=== PATIENT | female | born 1985 | race Caucasian/White ===

== ENCOUNTER 2017-06-27 18:22 | Emergency (ER) | payer MEDICAID, OTHER ==
[~2017-06-27] VITALS: Ht 172.7 cm; Wt 61.4 kg
[~2017-06-27 18:22] MED LIST: FLUO-191 PO; LAMO100 PO
[2017-06-27] MEDS ORDERED: ONDANSETRON HCL 4 MG/2 ML VIAL IM ONE (22:15)
[2017-06-27 22:23] LABS: AMPHET/METH SCREEN,URINE POSITIVE (NEGATIVE); BARBITURATE SCREEN, URINE NEGATIVE (NEGATIVE); BENZODIAZEPINES SCREEN,URINE NEGATIVE (NEGATIVE); CANNABINOID SCREEN,URINE NEGATIVE (NEGATIVE); COCAINE SCREEN,URINE NEGATIVE (NEGATIVE); METHADONE SCREEN, URINE NEGATIVE (NEGATIVE); OPIATE SCREEN,URINE NEGATIVE (NEGATIVE)
[2017-06-27 22:24] LABS: PHENCYCLIDINE SCREEN,URINE NEGATIVE (NEGATIVE)
[2017-06-27 23:34] VITALS: BP 132/85
== END 2017-06-27 23:35 | disposition home or self-care (01) ==
LOC: EMS 18:25
DX: S83.92XA Sprain of unspecified site of left knee, initial encounter (principal); F32.9 Major depressive disorder, single episode, unspecified; F41.9 Anxiety disorder, unspecified; F17.210 Nicotine dependence, cigarettes, uncomplicated; Z88.0 Allergy status to penicillin; Z88.6 Allergy status to analgesic agent; Z79.899 Other long term (current) drug therapy; X50.1XXA Overexertion from prolonged static or awkward postures, initial encounter; Y93.89 Activity, other specified; Y92.89 Other specified places as the place of occurrence of the external cause; Y99.8 Other external cause status
CPT/HCPCS: 73562; 80307; 96372; 99285; J2405

== ENCOUNTER 2017-06-29 16:24 | Emergency (ER) | payer OTHER | END 2017-06-29 17:21 | disposition left against medical advice (07) | LOC: EMS 16:28 | DX: Z53.21 Procedure and treatment not carried out due to patient leaving prior to being seen by health care provider (principal) ==

== ENCOUNTER 2019-09-25 18:53 | Inpatient (IN) | payer MEDICARE, MEDICAID ==
[~2019-09-25] VITALS: Ht 172.7 cm; Wt 77.3 kg
[2019-09-25] MEDS ORDERED: DOCU-342 PO (19:06)
[2019-09-25] MEDS ORDERED: LEVO50 PO (19:06)
[2019-09-25] MEDS ORDERED: CHOL200016 PO (19:06)
[2019-09-25] MEDS ORDERED: LITH300C3 PO (19:06)
[2019-09-25] MEDS ORDERED: OLAN10TA3 PO (19:06)
[2019-09-25] MEDS ORDERED: [UNRECOGNIZED DRUG - CODE] PO (19:06)
[2019-09-25] MEDS ORDERED: LACT30L PO (19:06)
[2019-09-25] MEDS ORDERED: HALO10 PO (19:06)
[2019-09-25 20:37] LABS: AMPHET/METH SCREEN,URINE NEGATIVE (NEGATIVE); BARBITURATE SCREEN, URINE NEGATIVE (NEGATIVE); BENZODIAZEPINES SCREEN,URINE NEGATIVE (NEGATIVE); CANNABINOID SCREEN,URINE NEGATIVE (NEGATIVE); COCAINE SCREEN,URINE NEGATIVE (NEGATIVE); METHADONE SCREEN, URINE NEGATIVE (NEGATIVE); OPIATE SCREEN,URINE NEGATIVE (NEGATIVE)
[2019-09-25 20:39] LABS: PHENCYCLIDINE SCREEN,URINE NEGATIVE (NEGATIVE)
[2019-09-25 20:41] LABS: BASOPHILS % (AUTO) 0.5 % (0.0-2.0); EOSINOPHILS % (AUTO) 1.6 % (1.0-6.0); HEMATOCRIT 39.2 % (36-46); HEMOGLOBIN 12.9 g/dL (12.0-16.0); LYMPHOCYTES # (AUTO) 3.5 K/uL (1.0-4.8); LYMPHOCYTES % (AUTO) 29.6 % (22.0-44.0); MEAN CORPUSCULAR HEMOGLOBIN 28.5 pg (26.0-34.0); MEAN CORPUSCULAR VOLUME 87 fL (80-100); MONOCYTES # (AUTO) 0.6 K/uL (0.1-1.0); MONOCYTES % (AUTO) 5.5 % (2.0-9.0); NEUTROPHILS # (AUTO) 7.4 K/uL (1.8-7.7); NEUTROPHILS % (AUTO) 62.8 % (40.0-70.0); PLATELET COUNT (AUTO) 443 K/uL (150-450); RED BLOOD CELL COUNT(AUTO) 4.53 MIL/uL (4.00-5.20)
[2019-09-25 20:52] LABS: ANION GAP 11 mmol/L (8-16); CARBON DIOXIDE 28 mmol/L (22-29); CHLORIDE 103 mmol/L (98-107); CREATININE 0.72 mg/dL (0.60-1.30); GLOMERULAR FILTR. RATE CALC > 60 mL/min (>60); GLUCOSE,RANDOM 93 mg/dL (70-110); LITHIUM 0.43 mmol/L (0.60-1.20); POTASSIUM 3.9 mmol/L (3.5-5.1); SODIUM SERUM 142 mmol/L (136-145); UREA NITROGEN, BLOOD 7 mg/dL (7-18)
[2019-09-25 21:07] LABS: ALANINE AMINOTRANSFERASE 24 U/L (12-78); ALBUMIN 3.9 g/dL (3.4-5.0); ALKALINE PHOSPHATASE 61 U/L (46-116); ASPARTATE AMINOTRANSFERASE 17 U/L (15-37); THYROID STIMULATING HORMONE 5.82 uIU/mL (0.36-3.74)
[2019-09-25] MEDS ORDERED: QUEtiapine FUMARATE 100 MG TABLET PO PRN (22:15)
[2019-09-26 00:38] VITALS: BP 122/65
[2019-09-26] MEDS: ZOLPIDEM TARTRATE 10 MG TABLET PO PRN ×2 (02:12→22:04)
[2019-09-26 08:56] VITALS: BP 122/75
[2019-09-26] MEDS ORDERED: ACETAMINOPHEN 325 MG TABLET PO PRN (09:30)
[2019-09-26] MEDS ORDERED: PETROLATUM,WHITE 28 GM JELLY TP PRN (09:30)
[2019-09-26] MEDS ORDERED: MAG HYDROX/AL HYDROX/SIMETH ES 30 ML SUSPENSION UDCUP PO PRN (09:30)
[2019-09-26] MEDS ORDERED: ONDANSETRON HCL 4 MG TABLET PO PRN (09:30)
[2019-09-26] MEDS ORDERED: GuaiFENesin/D-METHORPHAN [SUGAR-FREE] 200-20MG/10 ML SYRUP UDCUP PO PRN (09:30)
[2019-09-26] MEDS ORDERED: DOCUSATE SODIUM 100 MG CAPSULE PO PRN (09:30)
[2019-09-26] MEDS ORDERED: MAGNESIUM HYDROXIDE SUSPENSION 30 ML UDCUP PO PRN (09:30)
[2019-09-26] MEDS ORDERED: ALBUTEROL SULFATE HFA 90 MCG/PUFF 8 GM INHALER IH PRN (09:30)
[2019-09-26] MEDS ORDERED: CloNIDine HCL 0.1 MG TABLET PO PRN (09:30)
[2019-09-26] MEDS ORDERED: LACTULOSE 20 GM/30 ML SOLUTION UDCUP PO PRN (09:30)
[2019-09-26] MEDS ORDERED: LOPERAMIDE HCL 2 MG CAPSULE PO PRN (09:30)
[2019-09-26] MEDS ORDERED: NICOTINE 14 MG/24 HOUR PATCH TD PRN (09:30)
[2019-09-26] MEDS: LORazepam 2 MG TABLET PO PRN ×2 (10:39→16:46)
[2019-09-26] MEDS: FLUoxetine HCL 10 MG CAPSULE PO SCH ×2 (11:15→17:28)
[2019-09-26] MEDS: HALOPERIDOL 10 MG TABLET PO SCH ×2 (12:57→20:21)
[2019-09-26 16:06] VITALS: BP 108/61
[2019-09-26] MEDS: DOCUSATE SODIUM 250 MG CAPSULE PO SCH (16:46)
[2019-09-26] MEDS: LITHIUM CARBONATE 300 MG ER TABLET PO SCH (20:21)
[2019-09-27 01:09] VITALS: BP 108/68
[2019-09-27] MEDS: LEVOTHYROXINE SODIUM 50 MCG TABLET PO SCH (06:29)
[2019-09-27] MEDS: HALOPERIDOL 10 MG TABLET PO SCH ×2 (08:39→20:10)
[2019-09-27] MEDS: DOCUSATE SODIUM 250 MG CAPSULE PO SCH ×2 (08:40→16:33)
[2019-09-27] MEDS: LORazepam 2 MG TABLET PO PRN ×3 (09:26→20:37)
[2019-09-27 09:29] VITALS: BP 112/60
[2019-09-27] MEDS: CHOLECALCIFEROL (VIT D3) 2,000 UNITS [50 MCG] TABLET PO SCH (09:33)
[2019-09-27 16:15] VITALS: BP_SYST 105; BP_SYST 95; BP_DIAS 57; BP_DIAS 62
[2019-09-27] MEDS: LITHIUM CARBONATE 300 MG ER TABLET PO SCH (20:10)
[2019-09-27] MEDS: ZOLPIDEM TARTRATE 10 MG TABLET PO PRN (21:39)
[2019-09-28 00:05] VITALS: BP 110/70
[2019-09-28] MEDS: LORazepam 2 MG TABLET PO PRN ×3 (05:52→16:47)
[2019-09-28] MEDS: LEVOTHYROXINE SODIUM 50 MCG TABLET PO SCH (06:12)
[2019-09-28] MEDS: CHOLECALCIFEROL (VIT D3) 2,000 UNITS [50 MCG] TABLET PO SCH (08:02)
[2019-09-28] MEDS: DOCUSATE SODIUM 250 MG CAPSULE PO SCH ×2 (08:02→16:39)
[2019-09-28] MEDS: FLUoxetine HCL 10 MG CAPSULE PO SCH (08:02)
[2019-09-28] MEDS: HALOPERIDOL 10 MG TABLET PO SCH ×2 (08:03→20:30)
[2019-09-28 08:18] VITALS: BP 107/61
[2019-09-28 16:04] VITALS: BP 106/68
[2019-09-28] MEDS: LITHIUM CARBONATE 300 MG ER TABLET PO SCH (20:30)
[2019-09-29 05:00] VITALS: BP 110/68
[2019-09-29] MEDS: LEVOTHYROXINE SODIUM 50 MCG TABLET PO SCH (06:49)
[2019-09-29] MEDS: FLUoxetine HCL 10 MG CAPSULE PO SCH (08:33)
[2019-09-29] MEDS: DOCUSATE SODIUM 250 MG CAPSULE PO SCH ×2 (08:33→16:09)
[2019-09-29] MEDS: CHOLECALCIFEROL (VIT D3) 2,000 UNITS [50 MCG] TABLET PO SCH (08:33)
[2019-09-29] MEDS: HALOPERIDOL 10 MG TABLET PO SCH ×2 (08:34→20:29)
[2019-09-29 08:46] VITALS: BP 117/82
[2019-09-29] MEDS: LORazepam 2 MG TABLET PO PRN ×2 (12:09→16:10)
[2019-09-29 16:15] VITALS: BP 126/76
[2019-09-29] MEDS: LITHIUM CARBONATE 300 MG ER TABLET PO SCH (20:26)
[2019-09-30 06:24] VITALS: BP 108/60
[2019-09-30] MEDS: LEVOTHYROXINE SODIUM 50 MCG TABLET PO SCH (06:58)
[2019-09-30] MEDS: FLUoxetine HCL 10 MG CAPSULE PO SCH (08:08)
[2019-09-30] MEDS: DOCUSATE SODIUM 250 MG CAPSULE PO SCH ×2 (08:09→16:33)
[2019-09-30] MEDS: HALOPERIDOL 10 MG TABLET PO SCH ×2 (08:09→20:28)
[2019-09-30] MEDS: CHOLECALCIFEROL (VIT D3) 2,000 UNITS [50 MCG] TABLET PO SCH (08:09)
[2019-09-30 08:11] VITALS: BP 105/61
[2019-09-30] MEDS: LORazepam 2 MG TABLET PO PRN ×2 (09:37→16:33)
[2019-09-30 16:03] VITALS: BP 108/67
[2019-10-01 00:05] VITALS: BP 102/63
[2019-10-01] MEDS: LEVOTHYROXINE SODIUM 50 MCG TABLET PO SCH (06:31)
[2019-10-01 08:09] VITALS: BP 109/71
[2019-10-01] MEDS: DOCUSATE SODIUM 250 MG CAPSULE PO SCH ×2 (08:28→16:32)
[2019-10-01] MEDS: FLUoxetine HCL 10 MG CAPSULE PO SCH (08:28)
[2019-10-01] MEDS: HALOPERIDOL 10 MG TABLET PO SCH ×2 (08:29→20:32)
[2019-10-01] MEDS: CHOLECALCIFEROL (VIT D3) 2,000 UNITS [50 MCG] TABLET PO SCH (08:30)
[2019-10-01] MEDS: LORazepam 2 MG TABLET PO PRN ×3 (08:52→21:41)
[2019-10-01 16:22] VITALS: BP 112/62
[2019-10-01] MEDS: LITHIUM CARBONATE 450 MG ER TABLET PO SCH (20:31)
[2019-10-02 01:20] VITALS: BP 121/70
[2019-10-02 06:31] VITALS: BP 111/78
[2019-10-02] MEDS: LORazepam 2 MG TABLET PO PRN ×4 (06:34→20:01)
[2019-10-02] MEDS: LEVOTHYROXINE SODIUM 50 MCG TABLET PO SCH (06:44)
[2019-10-02] MEDS: DOCUSATE SODIUM 250 MG CAPSULE PO SCH ×2 (08:03→16:23)
[2019-10-02] MEDS: FLUoxetine HCL 10 MG CAPSULE PO SCH (08:03)
[2019-10-02] MEDS: CHOLECALCIFEROL (VIT D3) 2,000 UNITS [50 MCG] TABLET PO SCH (08:03)
[2019-10-02] MEDS: HALOPERIDOL 10 MG TABLET PO SCH ×2 (08:03→21:00)
[2019-10-02 08:26] VITALS: BP 104/60
[2019-10-02 16:00] VITALS: BP 110/67
[2019-10-02] MEDS: LITHIUM CARBONATE 450 MG ER TABLET PO SCH (20:59)
[2019-10-03] VITALS: BP 90/60
[2019-10-03] MEDS: LEVOTHYROXINE SODIUM 50 MCG TABLET PO SCH (06:50)
[2019-10-03 08:41] VITALS: BP 114/63
[2019-10-03] MEDS: DOCUSATE SODIUM 250 MG CAPSULE PO SCH ×2 (09:00→16:40)
[2019-10-03] MEDS: LORazepam 2 MG TABLET PO PRN ×2 (09:16→18:33)
[2019-10-03] MEDS: FLUoxetine HCL 10 MG CAPSULE PO SCH (09:16)
[2019-10-03] MEDS: HALOPERIDOL 10 MG TABLET PO SCH ×2 (09:16→20:31)
[2019-10-03] MEDS: CHOLECALCIFEROL (VIT D3) 2,000 UNITS [50 MCG] TABLET PO SCH (09:16)
[2019-10-03 16:35] VITALS: BP 119/72
[2019-10-03] MEDS: LITHIUM CARBONATE 450 MG ER TABLET PO SCH (20:31)
[2019-10-04 01:50] VITALS: BP 102/63
[2019-10-04] MEDS: LEVOTHYROXINE SODIUM 50 MCG TABLET PO SCH (05:55)
[2019-10-04] MEDS: FLUoxetine HCL 10 MG CAPSULE PO SCH (08:39)
[2019-10-04] MEDS: CHOLECALCIFEROL (VIT D3) 2,000 UNITS [50 MCG] TABLET PO SCH (08:39)
[2019-10-04] MEDS: HALOPERIDOL 10 MG TABLET PO SCH (08:39)
[2019-10-04] MEDS: DOCUSATE SODIUM 250 MG CAPSULE PO SCH (08:39)
[2019-10-04] MEDS ORDERED: HALO10 PO (08:54)
[2019-10-04] MEDS ORDERED: LITH450CRT PO (08:54)
[2019-10-04] MEDS ORDERED: PROZ10 PO (08:54)
== END 2019-10-04 12:30 | disposition home or self-care (01) | DRG 885 ==
LOC: EMS 18:55 → B2X 22:06
DX: F25.0 Schizoaffective disorder, bipolar type (principal); R45.851 Suicidal ideations; D72.829 Elevated white blood cell count, unspecified; E03.9 Hypothyroidism, unspecified; E55.9 Vitamin D deficiency, unspecified; F17.200 Nicotine dependence, unspecified, uncomplicated; K59.09 Other constipation; Z71.6 Tobacco abuse counseling; Z91.5 Personal history of self-harm; Z79.899 Other long term (current) drug therapy
CPT/HCPCS: 84439; 84443; G0480

== ENCOUNTER 2019-11-10 15:33 | Inpatient (IN) | payer MEDICARE, MEDICAID ==
[~2019-11-10] VITALS: Ht 172.7 cm; Wt 77.8 kg
[~2019-11-10 15:33] MED LIST changes: -FLUO-191 PO; +FLUO40CA7 PO; +HALO10 PO; -LAMO100 PO; +LAMO200T PO; +LEVO50 PO; +LITH450CRT PO; +PROZ10 PO; +TNFMISC; +[UNRECOGNIZED DRUG - CODE]
[2019-11-10] MEDS ORDERED: SODIUM CHLORIDE 0.9% 1,000 ML IV ONE (15:51)
[2019-11-10] MEDS ORDERED: ONDANSETRON HCL 4 MG/2 ML VIAL IVP ONE (16:00)
[2019-11-10 16:36] LABS: BASOPHILS % (AUTO) 0.4 % (0.0-2.0); EOSINOPHILS % (AUTO) 1.4 % (1.0-6.0); HEMATOCRIT 37.8 % (36-46); HEMOGLOBIN 12.4 g/dL (12.0-16.0); LYMPHOCYTES # (AUTO) 1.8 K/uL (1.0-4.8); LYMPHOCYTES % (AUTO) 19.3 % (22.0-44.0); MEAN CORPUSCULAR HEMOGLOBIN 28.2 pg (26.0-34.0); MEAN CORPUSCULAR HGB CONC 32.8 G/dL (31.0-37.0); MEAN CORPUSCULAR VOLUME 86 fL (80-100); MONOCYTES # (AUTO) 0.4 K/uL (0.1-1.0); MONOCYTES % (AUTO) 4.3 % (2.0-9.0); NEUTROPHILS # (AUTO) 7.1 K/uL (1.8-7.7); NEUTROPHILS % (AUTO) 74.6 % (40.0-70.0); PLATELET COUNT (AUTO) 454 K/uL (150-450); RED BLOOD CELL COUNT(AUTO) 4.39 MIL/uL (4.00-5.20); RED CELL DISTRIBUTION WIDTH 14.1 % (11.5-14.5)
[2019-11-10 16:42] LABS: APPEARANCE,URINE CLEAR (CLEAR); BILIRUBIN,URINE NEGATIVE (NEGATIVE); GLUCOSE, URINE (UA) NEGATIVE (NEGATIVE); KETONES,URINE NEGATIVE (NEGATIVE); LEUKOCYTE ESTERASE ,URINE NEGATIVE (NEGATIVE); NITRATE,URINE NEGATIVE (NEGATIVE); OCCULT BLOOD,URINE NEGATIVE (NEGATIVE); PH,URINE 6.5 (5.0-8.0); PROTEIN,URINE NEGATIVE (NEGATIVE); UROBILINOGEN,URINE 0.2 mg/dL (<=1.0)
[2019-11-10 16:47] LABS: LITHIUM 0.65 mmol/L (0.60-1.20)
[2019-11-10 16:48] LABS: AMPHET/METH SCREEN,URINE NEGATIVE (NEGATIVE); BARBITURATE SCREEN, URINE NEGATIVE (NEGATIVE); BENZODIAZEPINES SCREEN,URINE NEGATIVE (NEGATIVE); CANNABINOID SCREEN,URINE NEGATIVE (NEGATIVE); COCAINE SCREEN,URINE NEGATIVE (NEGATIVE); METHADONE SCREEN, URINE NEGATIVE (NEGATIVE); OPIATE SCREEN,URINE NEGATIVE (NEGATIVE); PHENCYCLIDINE SCREEN,URINE NEGATIVE (NEGATIVE)
[2019-11-10 16:50] LABS: ANION GAP 6 mmol/L (8-16); CALCIUM, TOTAL 9.4 mg/dL (8.8-10.5); CARBON DIOXIDE 27 mmol/L (22-29); CHLORIDE 101 mmol/L (98-107); GLOMERULAR FILTR. RATE CALC > 60 mL/min (>60); GLUCOSE,RANDOM 102 mg/dL (70-110); POTASSIUM 3.4 mmol/L (3.5-5.1); SODIUM SERUM 134 mmol/L (136-145); UREA NITROGEN, BLOOD 6 mg/dL (7-18)
[2019-11-10 17:05] LABS: ALANINE AMINOTRANSFERASE 22 U/L (12-78); ALKALINE PHOSPHATASE 58 U/L (46-116); ASPARTATE AMINOTRANSFERASE 15 U/L (15-37); BILIRUBIN,TOTAL 0.6 mg/dL (0.1-1.0); HCG,QUANTITATIVE < 1 mIU/mL (0-6); LIPASE 147 U/L (73-393); THYROID STIMULATING HORMONE 2.13 uIU/mL (0.36-3.74); TOTAL PROTEIN, SERUM 7.3 g/dL (6.4-8.2)
[2019-11-10] MEDS ORDERED: ONDANSETRON HCL 4 MG TABLET PO ONE (20:30)
[2019-11-10] MEDS ORDERED: POTASSIUM CHLORIDE 20 MEQ ER TABLET PO ONE (20:30)
[2019-11-11] MEDS ORDERED: QUEtiapine FUMARATE 100 MG TABLET PO PRN (02:00)
[2019-11-11] MEDS: LORazepam 2 MG TABLET PO PRN ×4 (02:13→22:19)
[2019-11-11] MEDS: ZOLPIDEM TARTRATE 10 MG TABLET PO PRN (02:13)
[2019-11-11 02:17] VITALS: BP 129/81
[2019-11-11 03:29] VITALS: BP 129/81
[2019-11-11 07:04] LABS: CHOL/HDL RATIO 2.9 (3.9-5.7)
[2019-11-11] MEDS ORDERED: ALBUTEROL SULFATE HFA 90 MCG/PUFF 8 GM INHALER IH PRN (07:15)
[2019-11-11] MEDS ORDERED: CloNIDine HCL 0.1 MG TABLET PO PRN (07:15)
[2019-11-11] MEDS ORDERED: NICOTINE 14 MG/24 HOUR PATCH TD PRN (07:15)
[2019-11-11] MEDS ORDERED: LOPERAMIDE HCL 2 MG CAPSULE PO PRN (07:15)
[2019-11-11] MEDS ORDERED: DOCUSATE SODIUM 100 MG CAPSULE PO PRN (07:15)
[2019-11-11] MEDS ORDERED: MAGNESIUM HYDROXIDE SUSPENSION 30 ML UDCUP PO PRN (07:15)
[2019-11-11] MEDS ORDERED: PETROLATUM,WHITE 28 GM JELLY TP PRN (07:15)
[2019-11-11] MEDS ORDERED: GuaiFENesin/D-METHORPHAN [SUGAR-FREE] 200-20MG/10 ML SYRUP UDCUP PO PRN (07:15)
[2019-11-11] MEDS ORDERED: MAG HYDROX/AL HYDROX/SIMETH ES 30 ML SUSPENSION UDCUP PO PRN (07:15)
[2019-11-11] MEDS ORDERED: ONDANSETRON HCL 4 MG TABLET PO PRN (07:15)
[2019-11-11 09:11] VITALS: BP 104/57
[2019-11-11 09:21] VITALS: BP 104/57
[2019-11-11 16:00] VITALS: BP 118/71
[2019-11-11] MEDS: LITHIUM CARBONATE 300 MG ER TABLET PO SCH (20:01)
[2019-11-11] MEDS ORDERED: HALOPERIDOL 10 MG TABLET PO SCH (21:00)
[2019-11-11 21:19] VITALS: BP 116/76
[2019-11-11] MEDS: ACETAMINOPHEN 325 MG TABLET PO PRN (22:19)
[2019-11-12] MEDS: LEVOTHYROXINE SODIUM 50 MCG TABLET PO SCH (06:23)
[2019-11-12 06:55] VITALS: BP 113/71
[2019-11-12] MEDS: LORazepam 2 MG TABLET PO PRN ×3 (06:55→16:52)
[2019-11-12] MEDS: HALOPERIDOL 5 MG TABLET PO SCH ×2 (08:45→20:02)
[2019-11-12] MEDS: FLUoxetine HCL 10 MG CAPSULE PO SCH (08:45)
[2019-11-12 11:11] VITALS: BP 109/70
[2019-11-12 16:00] VITALS: BP 104/54
[2019-11-12] MEDS: LITHIUM CARBONATE 300 MG ER TABLET PO SCH (20:03)
[2019-11-12] MEDS: ZOLPIDEM TARTRATE 10 MG TABLET PO PRN (21:17)
[2019-11-13] MEDS: LEVOTHYROXINE SODIUM 50 MCG TABLET PO SCH (06:31)
[2019-11-13] MEDS: HALOPERIDOL 5 MG TABLET PO SCH ×2 (08:18→20:04)
[2019-11-13] MEDS: FLUoxetine HCL 10 MG CAPSULE PO SCH (08:19)
[2019-11-13] MEDS: ACETAMINOPHEN 325 MG TABLET PO PRN ×2 (08:20→18:44)
[2019-11-13] MEDS: LORazepam 2 MG TABLET PO PRN ×2 (08:36→16:38)
[2019-11-13 09:00] VITALS: BP 106/62
[2019-11-13 18:45] VITALS: BP 101/62
[2019-11-13] MEDS: LITHIUM CARBONATE 300 MG ER TABLET PO SCH (20:03)
[2019-11-13] MEDS: ZOLPIDEM TARTRATE 10 MG TABLET PO PRN (23:57)
[2019-11-14 00:13] VITALS: BP 102/68
[2019-11-14] MEDS: LEVOTHYROXINE SODIUM 50 MCG TABLET PO SCH (06:19)
[2019-11-14] MEDS: LORazepam 2 MG TABLET PO PRN ×2 (07:01→18:18)
[2019-11-14] MEDS: FLUoxetine HCL 10 MG CAPSULE PO SCH (08:05)
[2019-11-14] MEDS: HALOPERIDOL 5 MG TABLET PO SCH ×2 (08:05→20:28)
[2019-11-14 09:00] VITALS: BP 129/81
[2019-11-14 16:21] VITALS: BP 135/74
[2019-11-14 20:28] VITALS: BP 126/78
[2019-11-14] MEDS: LITHIUM CARBONATE 300 MG ER TABLET PO SCH (20:28)
[2019-11-14] MEDS: ACETAMINOPHEN 325 MG TABLET PO PRN (20:28)
[2019-11-15 01:55] VITALS: BP 112/73
[2019-11-15] MEDS: LEVOTHYROXINE SODIUM 50 MCG TABLET PO SCH (07:16)
[2019-11-15] MEDS: HALOPERIDOL 5 MG TABLET PO SCH ×2 (07:55→20:20)
[2019-11-15] MEDS: FLUoxetine HCL 10 MG CAPSULE PO SCH (07:55)
[2019-11-15 09:00] VITALS: BP 106/58
[2019-11-15] MEDS: LORazepam 2 MG TABLET PO PRN ×2 (09:27→18:43)
[2019-11-15] MEDS: ACETAMINOPHEN 325 MG TABLET PO PRN (14:39)
[2019-11-15 17:00] VITALS: BP 113/78
[2019-11-15] MEDS: LITHIUM CARBONATE 300 MG ER TABLET PO SCH (20:19)
[2019-11-15] MEDS: BENZOCAINE 10% 7 GM GEL TP PRN (20:20)
[2019-11-15] MEDS: ZOLPIDEM TARTRATE 10 MG TABLET PO PRN (21:06)
[2019-11-16] MEDS: LEVOTHYROXINE SODIUM 50 MCG TABLET PO SCH (06:38)
[2019-11-16] MEDS: FLUoxetine HCL 10 MG CAPSULE PO SCH (08:03)
[2019-11-16] MEDS: LORazepam 2 MG TABLET PO PRN ×2 (08:03→18:42)
[2019-11-16] MEDS: HALOPERIDOL 5 MG TABLET PO SCH ×2 (08:03→20:14)
[2019-11-16 09:45] VITALS: BP 115/64
[2019-11-16 12:44] VITALS: BP 104/68
[2019-11-16] MEDS: ACETAMINOPHEN 325 MG TABLET PO PRN ×2 (12:44→20:53)
[2019-11-16] MEDS: BENZOCAINE 10% 7 GM GEL TP PRN (15:11)
[2019-11-16 16:15] VITALS: BP 102/59
[2019-11-16] MEDS: LITHIUM CARBONATE 300 MG ER TABLET PO SCH (20:14)
[2019-11-16] MEDS: ZOLPIDEM TARTRATE 10 MG TABLET PO PRN (20:51)
[2019-11-16 20:53] VITALS: BP 109/62
[2019-11-17] MEDS: LEVOTHYROXINE SODIUM 50 MCG TABLET PO SCH (06:30)
[2019-11-17] MEDS: HALOPERIDOL 5 MG TABLET PO SCH ×2 (08:25→20:12)
[2019-11-17] MEDS: FLUoxetine HCL 10 MG CAPSULE PO SCH (08:26)
[2019-11-17 08:38] VITALS: BP 95/65
[2019-11-17 10:53] VITALS: BP 91/59
[2019-11-17 12:50] VITALS: BP 110/64
[2019-11-17] MEDS: LORazepam 2 MG TABLET PO PRN (12:50)
[2019-11-17 14:14] VITALS: BP 103/66
[2019-11-17] MEDS: ACETAMINOPHEN 325 MG TABLET PO PRN (14:14)
[2019-11-17] MEDS: BENZOCAINE 10% 7 GM GEL TP PRN (15:39)
[2019-11-17 16:40] VITALS: BP 108/66
[2019-11-17] MEDS: LITHIUM CARBONATE 300 MG ER TABLET PO SCH (20:12)
[2019-11-18] MEDS: LEVOTHYROXINE SODIUM 50 MCG TABLET PO SCH (06:35)
[2019-11-18] MEDS: HALOPERIDOL 5 MG TABLET PO SCH ×2 (08:19→20:05)
[2019-11-18] MEDS: FLUoxetine HCL 10 MG CAPSULE PO SCH (08:20)
[2019-11-18] MEDS: LORazepam 2 MG TABLET PO PRN ×2 (08:22→17:06)
[2019-11-18] MEDS: ACETAMINOPHEN 325 MG TABLET PO PRN ×2 (09:21→22:17)
[2019-11-18 09:22] VITALS: BP 101/62
[2019-11-18 10:21] VITALS: BP 143/80
[2019-11-18 16:00] VITALS: BP 90/64
[2019-11-18 16:33] VITALS: BP 90/64
[2019-11-18] MEDS: LITHIUM CARBONATE 300 MG ER TABLET PO SCH (20:05)
[2019-11-18] MEDS: ZOLPIDEM TARTRATE 10 MG TABLET PO PRN (20:51)
[2019-11-18 22:17] VITALS: BP 110/62
[2019-11-19] MEDS: LEVOTHYROXINE SODIUM 50 MCG TABLET PO SCH (06:55)
[2019-11-19] MEDS: LORazepam 2 MG TABLET PO PRN ×2 (07:04→19:42)
[2019-11-19] MEDS: FLUoxetine HCL 10 MG CAPSULE PO SCH (08:30)
[2019-11-19] MEDS: HALOPERIDOL 5 MG TABLET PO SCH ×2 (08:31→20:14)
[2019-11-19 13:00] VITALS: BP 90/62
[2019-11-19] MEDS: ACETAMINOPHEN 325 MG TABLET PO PRN (13:00)
[2019-11-19 17:19] VITALS: BP 120/80
[2019-11-19] MEDS: LITHIUM CARBONATE 300 MG ER TABLET PO SCH (20:13)
[2019-11-20] MEDS: LEVOTHYROXINE SODIUM 50 MCG TABLET PO SCH (07:08)
[2019-11-20 08:00] VITALS: BP 93/57
[2019-11-20] MEDS: FLUoxetine HCL 10 MG CAPSULE PO SCH (08:02)
[2019-11-20] MEDS: HALOPERIDOL 5 MG TABLET PO SCH ×2 (08:04→20:22)
[2019-11-20] MEDS: ACETAMINOPHEN 325 MG TABLET PO PRN (10:47)
[2019-11-20] MEDS: LORazepam 2 MG TABLET PO PRN (14:53)
[2019-11-20 16:25] VITALS: BP 96/75
[2019-11-20] MEDS: LITHIUM CARBONATE 300 MG ER TABLET PO SCH (20:22)
[2019-11-21] MEDS: LORazepam 2 MG TABLET PO PRN ×3 (00:49→18:18)
[2019-11-21] MEDS: ZOLPIDEM TARTRATE 10 MG TABLET PO PRN ×2 (00:49→22:05)
[2019-11-21 01:53] VITALS: BP 104/60
[2019-11-21] MEDS: LEVOTHYROXINE SODIUM 50 MCG TABLET PO SCH (06:41)
[2019-11-21] MEDS: HALOPERIDOL 5 MG TABLET PO SCH ×2 (08:13→20:07)
[2019-11-21] MEDS: FLUoxetine HCL 10 MG CAPSULE PO SCH (08:13)
[2019-11-21 08:47] VITALS: BP 91/46
[2019-11-21 16:26] VITALS: BP 99/53
[2019-11-21] MEDS: LITHIUM CARBONATE 300 MG ER TABLET PO SCH (20:06)
[2019-11-22] MEDS: LEVOTHYROXINE SODIUM 50 MCG TABLET PO SCH (06:47)
[2019-11-22] MEDS: HALOPERIDOL 5 MG TABLET PO SCH (08:14)
[2019-11-22] MEDS: FLUoxetine HCL 10 MG CAPSULE PO SCH (08:15)
[2019-11-22 08:47] VITALS: BP 96/68
[2019-11-22] MEDS ORDERED: LITH300CRT PO (10:32)
[2019-11-22] MEDS ORDERED: HALO5TAB2 PO (10:32)
[2019-11-22] MEDS ORDERED: PROZ10 PO (10:32)
== END 2019-11-22 14:20 | disposition home or self-care (01) | DRG 885 ==
LOC: EMS 15:33 → 3EX 22:52
DX: F25.0 Schizoaffective disorder, bipolar type (principal); R45.851 Suicidal ideations; E87.1 Hypo-osmolality and hyponatremia; K08.89 Other specified disorders of teeth and supporting structures; E55.9 Vitamin D deficiency, unspecified; F41.9 Anxiety disorder, unspecified; K59.09 Other constipation; R11.2 Nausea with vomiting, unspecified; R63.0 Anorexia; E03.9 Hypothyroidism, unspecified; E87.6 Hypokalemia; F17.210 Nicotine dependence, cigarettes, uncomplicated; Z59.0 Homelessness; Z79.899 Other long term (current) drug therapy; Z91.5 Personal history of self-harm; Z88.0 Allergy status to penicillin; Z88.6 Allergy status to analgesic agent; Z88.8 Allergy status to other drugs, medicaments and biological substances
CPT/HCPCS: 74022; 84132; 84443; G0378; G0480; Q0162

== ENCOUNTER 2019-11-24 15:27 | Emergency (ER) | payer MEDICARE, MEDICAID ==
[~2019-11-24] VITALS: Ht 172.7 cm; Wt 72.7 kg
[~2019-11-24 15:27] MED LIST changes: -FLUO40CA7 PO; -HALO10 PO; +HALO5TAB2 PO; -LAMO200T PO; +LITH300CRT PO; -LITH450CRT PO; -TNFMISC; -[UNRECOGNIZED DRUG - CODE]
[2019-11-24 16:39] LABS: AMPHET/METH SCREEN,URINE NEGATIVE (NEGATIVE); BARBITURATE SCREEN, URINE NEGATIVE (NEGATIVE); BENZODIAZEPINES SCREEN,URINE NEGATIVE (NEGATIVE); CANNABINOID SCREEN,URINE NEGATIVE (NEGATIVE); COCAINE SCREEN,URINE NEGATIVE (NEGATIVE); METHADONE SCREEN, URINE NEGATIVE (NEGATIVE); OPIATE SCREEN,URINE NEGATIVE (NEGATIVE)
[2019-11-24 16:39] LABS: BASOPHILS % (AUTO) 0.4 % (0.0-2.0); EOSINOPHILS % (AUTO) 0.2 % (1.0-6.0); HEMOGLOBIN 12.5 g/dL (12.0-16.0); LYMPHOCYTES # (AUTO) 2.2 K/uL (1.0-4.8); LYMPHOCYTES % (AUTO) 12.8 % (22.0-44.0); MEAN CORPUSCULAR HEMOGLOBIN 27.7 pg (26.0-34.0); MEAN CORPUSCULAR VOLUME 87 fL (80-100); MONOCYTES % (AUTO) 6.1 % (2.0-9.0); NEUTROPHILS # (AUTO) 13.6 K/uL (1.8-7.7); NEUTROPHILS % (AUTO) 80.5 % (40.0-70.0); PLATELET COUNT (AUTO) 422 K/uL (150-450); RED BLOOD CELL COUNT(AUTO) 4.49 MIL/uL (4.00-5.20); RED CELL DISTRIBUTION WIDTH 13.8 % (11.5-14.5)
[2019-11-24 16:51] LABS: PHENCYCLIDINE SCREEN,URINE NEGATIVE (NEGATIVE)
[2019-11-24 16:51] LABS: ANION GAP 8 mmol/L (8-16); CALCIUM, TOTAL 9.6 mg/dL (8.8-10.5); CARBON DIOXIDE 29 mmol/L (22-29); CHLORIDE 101 mmol/L (98-107); CREATININE 0.79 mg/dL (0.60-1.30); GLOMERULAR FILTR. RATE CALC > 60 mL/min (>60); GLUCOSE,RANDOM 89 mg/dL (70-110); POTASSIUM 3.4 mmol/L (3.5-5.1); SODIUM SERUM 138 mmol/L (136-145); UREA NITROGEN, BLOOD 15 mg/dL (7-18)
[2019-11-24 17:07] LABS: ALANINE AMINOTRANSFERASE 68 U/L (12-78); ALBUMIN 3.9 g/dL (3.4-5.0); ALKALINE PHOSPHATASE 69 U/L (46-116); ASPARTATE AMINOTRANSFERASE 162 U/L (15-37); BILIRUBIN,TOTAL 1.3 mg/dL (0.1-1.0); FREE T4 (FREE THYROXINE) 1.06 ng/dL (0.76-1.46); THYROID STIMULATING HORMONE 2.16 uIU/mL (0.36-3.74); TOTAL PROTEIN, SERUM 7.2 g/dL (6.4-8.2)
[2019-11-24] MEDS ORDERED: HALOPERIDOL 5 MG TABLET PO ONE (17:15)
[2019-11-24 17:23] LABS: LITHIUM < 0.20 mmol/L (0.60-1.20)
[2019-11-24 17:39] LABS: HCG,QUANTITATIVE < 1 mIU/mL (0-6)
[2019-11-24 17:45] LABS: APPEARANCE,URINE CLOUDY (CLEAR); BILIRUBIN,URINE NEGATIVE (NEGATIVE); GLUCOSE, URINE (UA) NEGATIVE (NEGATIVE); KETONES,URINE 15 mg/dL (NEGATIVE); LEUKOCYTE ESTERASE ,URINE SMALL (NEGATIVE); NITRATE,URINE NEGATIVE (NEGATIVE); OCCULT BLOOD,URINE NEGATIVE (NEGATIVE); PROTEIN,URINE POS 1+ (NEGATIVE)
[2019-11-24 18:21] LABS: BACTERIA,URINE Few /HPF (None Seen); RBC,URINE 0-2 /HPF (0-2)
[2019-11-24 18:22] LABS: SQUAMOUS EPITHELIAL CELL,UR Many /LPF (None Seen)
[2019-11-24] MEDS ORDERED: POTASSIUM CHLORIDE 20 MEQ ER TABLET PO ONE (18:30)
[2019-11-24] MEDS ORDERED: SULFAMETHOX/TRIMETH DS 800-160 MG/TABLET PO ONE (18:30)
[2019-11-24 21:12] VITALS: BP 103/66
== END 2019-11-24 21:45 | disposition home or self-care (01) ==
LOC: EMS 15:33
DX: R45.851 Suicidal ideations (principal); R44.0 Auditory hallucinations; N39.0 Urinary tract infection, site not specified; D72.829 Elevated white blood cell count, unspecified; F17.210 Nicotine dependence, cigarettes, uncomplicated; Z88.0 Allergy status to penicillin; Z88.1 Allergy status to other antibiotic agents; Z88.6 Allergy status to analgesic agent; Z79.899 Other long term (current) drug therapy
CPT/HCPCS: 36415; 71045; 80053; 80178; 80307; 81001; 84439; 84443; 84702; 85025; 87086; 99284; 99406; G0480

== ENCOUNTER 2020-08-23 17:35 | Emergency (ER) | payer MEDICAID ==
[~2020-08-23] VITALS: Ht 172.7 cm; Wt 65.9 kg
[~2020-08-23 17:35] MED LIST changes: +FLUO10CA24 PO; -PROZ10 PO
[2020-08-23 21:15] VITALS: BP 110/64
== END 2020-08-23 22:02 | disposition left against medical advice (07) ==
LOC: EMS 17:35 → EDUNIT# 17:35 → EMS 22:02
DX: F10.129 Alcohol abuse with intoxication, unspecified (principal); F20.9 Schizophrenia, unspecified; F17.210 Nicotine dependence, cigarettes, uncomplicated; Z88.0 Allergy status to penicillin; Z88.1 Allergy status to other antibiotic agents; Z88.6 Allergy status to analgesic agent; Y90.8 Blood alcohol level of 240 mg/100 ml or more
CPT/HCPCS: 36415; 99283; G0480

== ENCOUNTER 2020-10-28 09:47 | Emergency (ER) | payer MEDICARE, MEDICAID ==
[~2020-10-28] VITALS: Ht 172.7 cm; Wt 65.9 kg
[2020-10-28 11:12] LABS: COVID AG,FIA SOURCE NASOPHARYNGEAL
[2020-10-28 11:19] LABS: BASOPHILS % (AUTO) 0.6 % (0.0-2.0); HEMOGLOBIN 13.8 g/dL (12.0-16.0); LYMPHOCYTES % (AUTO) 28.4 % (22.0-44.0); MEAN CORPUSCULAR HEMOGLOBIN 30.4 pg (26.0-34.0); MEAN CORPUSCULAR HGB CONC 32.8 G/dL (31.0-37.0); MEAN CORPUSCULAR VOLUME 93 fL (80-100); MONOCYTES # (AUTO) 0.5 K/uL (0.1-1.0); MONOCYTES % (AUTO) 6.6 % (2.0-9.0); NEUTROPHILS # (AUTO) 4.5 K/uL (1.8-7.7); NEUTROPHILS % (AUTO) 62.4 % (40.0-70.0); PLATELET COUNT (AUTO) 300 K/uL (150-450); RED BLOOD CELL COUNT(AUTO) 4.53 MIL/uL (4.00-5.20); RED CELL DISTRIBUTION WIDTH 14.2 % (11.5-14.5)
[2020-10-28 11:27] LABS: ANION GAP 7 mmol/L (8-16); CALCIUM, TOTAL 7.8 mg/dL (8.8-10.5); CARBON DIOXIDE 28 mmol/L (22-29); CHLORIDE 108 mmol/L (98-107); CREATININE 0.57 mg/dL (0.60-1.30); GLOMERULAR FILTR. RATE CALC > 60 mL/min (>60); GLUCOSE,RANDOM 78 mg/dL (70-110); POTASSIUM 3.6 mmol/L (3.5-5.1); SODIUM SERUM 143 mmol/L (136-145); UREA NITROGEN, BLOOD 8 mg/dL (7-18)
[2020-10-28 11:42] LABS: ALANINE AMINOTRANSFERASE 21 U/L (12-78); ALKALINE PHOSPHATASE 76 U/L (46-116); ASPARTATE AMINOTRANSFERASE 20 U/L (15-37); BILIRUBIN,TOTAL 0.3 mg/dL (0.1-1.0); HCG,QUANTITATIVE < 1 mIU/mL (0-6); TOTAL PROTEIN, SERUM 5.8 g/dL (6.4-8.2)
[2020-10-28 12:15] LABS: LITHIUM < 0.20 mmol/L (0.60-1.20)
[2020-10-28 12:30] VITALS: BP 124/81
== END 2020-10-28 12:58 | disposition home or self-care (01) ==
LOC: EMS 09:55
DX: R45.851 Suicidal ideations (principal); F41.9 Anxiety disorder, unspecified; F10.129 Alcohol abuse with intoxication, unspecified; F31.9 Bipolar disorder, unspecified; F20.9 Schizophrenia, unspecified; F17.210 Nicotine dependence, cigarettes, uncomplicated; Z20.822 Contact with and (suspected) exposure to COVID-19; Z88.0 Allergy status to penicillin; Z88.6 Allergy status to analgesic agent; Y90.5 Blood alcohol level of 100-119 mg/100 ml
CPT/HCPCS: 36415; 80053; 80178; 84702; 85025; 87426; 99284; G0480

== ENCOUNTER 2020-12-08 18:35 | Inpatient (IN) | payer MEDICARE, MEDICAID ==
[~2020-12-08] VITALS: Ht 172.7 cm; Wt 62.2 kg
[2020-12-08] MEDS ORDERED: SODIUM CHLORIDE 0.9% 2,000 ML IV ONE (19:00)
[2020-12-08] MEDS ORDERED: ACETAMINOPHEN 500 MG TABLET PO ONE (19:00)
[2020-12-08 19:09] LABS: BASOPHILS % (AUTO) 0.1 % (0.0-2.0); EOSINOPHILS % (AUTO) 1.8 % (1.0-6.0); HEMATOCRIT 40.5 % (36-46); HEMOGLOBIN 13.4 g/dL (12.0-16.0); LYMPHOCYTES # (AUTO) 0.6 K/uL (1.0-4.8); LYMPHOCYTES % (AUTO) 2.7 % (22.0-44.0); MEAN CORPUSCULAR HGB CONC 33.1 G/dL (31.0-37.0); MEAN CORPUSCULAR VOLUME 91 fL (80-100); MONOCYTES # (AUTO) 0.4 K/uL (0.1-1.0); MONOCYTES % (AUTO) 2.1 % (2.0-9.0); NEUTROPHILS # (AUTO) 19.4 K/uL (1.8-7.7); PLATELET COUNT (AUTO) 168 K/uL (150-450); RED BLOOD CELL COUNT(AUTO) 4.47 MIL/uL (4.00-5.20); RED CELL DISTRIBUTION WIDTH 13.9 % (11.5-14.5)
[2020-12-08 19:11] LABS: COVID AG,FIA SOURCE NASOPHARYNGEAL; NEUTROPHILS % (AUTO) 93.3 % (40.0-70.0)
[2020-12-08 19:21] LABS: ANION GAP 6 mmol/L (8-16); CALCIUM, TOTAL 8.1 mg/dL (8.8-10.5); CARBON DIOXIDE 27 mmol/L (22-29); CHLORIDE 92 mmol/L (98-107); CREATININE 1.61 mg/dL (0.60-1.30); GLOMERULAR FILTR. RATE CALC 36 mL/min (>60); GLUCOSE,RANDOM 103 mg/dL (70-110); SODIUM SERUM 125 mmol/L (136-145); UREA NITROGEN, BLOOD 27 mg/dL (7-18)
[2020-12-08 19:35] LABS: ALANINE AMINOTRANSFERASE 28 U/L (12-78); ALBUMIN 2.5 g/dL (3.4-5.0); ALKALINE PHOSPHATASE 115 U/L (46-116); ASPARTATE AMINOTRANSFERASE 17 U/L (15-37); BILIRUBIN,TOTAL 1.1 mg/dL (0.1-1.0); HCG,QUANTITATIVE < 1 mIU/mL (0-6); TOTAL PROTEIN, SERUM 6.7 g/dL (6.4-8.2)
[2020-12-08 19:37] LABS: PLATELET MORPHOLOGY COMMENT LARGE PLTS PRESENT
[2020-12-08] MEDS ORDERED: CefTRIAXone 1 GM/DEXTROSE 50 ML IV ONE (20:30)
[2020-12-08 20:36] LABS: APPEARANCE,URINE CLOUDY (CLEAR); BILIRUBIN,URINE NEGATIVE (NEGATIVE); GLUCOSE, URINE (UA) NEGATIVE (NEGATIVE); KETONES,URINE NEGATIVE (NEGATIVE); LEUKOCYTE ESTERASE ,URINE SMALL (NEGATIVE); NITRATE,URINE NEGATIVE (NEGATIVE); OCCULT BLOOD,URINE LARGE (NEGATIVE); PROTEIN,URINE SEE CONFIRM (NEGATIVE)
[2020-12-08 20:46] LABS: AMPHET/METH SCREEN,URINE POSITIVE (NEGATIVE); BARBITURATE SCREEN, URINE NEGATIVE (NEGATIVE); BENZODIAZEPINES SCREEN,URINE NEGATIVE (NEGATIVE); CANNABINOID SCREEN,URINE NEGATIVE (NEGATIVE); COCAINE SCREEN,URINE NEGATIVE (NEGATIVE); METHADONE SCREEN, URINE NEGATIVE (NEGATIVE); OPIATE SCREEN,URINE NEGATIVE (NEGATIVE)
[2020-12-08 20:50] LABS: PHENCYCLIDINE SCREEN,URINE NEGATIVE (NEGATIVE)
[2020-12-08 20:53] LABS: SULFOSALICYLIC ACID,URINE 2+ (Negative)
[2020-12-08 20:55] LABS: RBC,URINE 0-2 /HPF (0-2)
[2020-12-08 21:01] LABS: BACTERIA,URINE Moderate /HPF (None Seen); SQUAMOUS EPITHELIAL CELL,UR Many /LPF (None Seen)
[2020-12-08] MEDS ORDERED: ACETAMINOPHEN 325 MG TABLET PO PRN (22:30)
[2020-12-08] MEDS ORDERED: 0.9% SODIUM CHLORIDE 10 ML SYRINGE IVP PRN (22:30)
[2020-12-08] MEDS ORDERED: AZTREONAM 1 GM in DEXTROSE 5%-WATER 50 ML IV ONE (22:30)
[2020-12-08] MEDS ORDERED: ONDANSETRON HCL 4 MG/2 ML VIAL IVP PRN (22:30)
[2020-12-08] MEDS ORDERED: POTASSIUM CHL 20 MEQ/0.9% NS 1,000 ML IV ONE (22:45)
[2020-12-08 23:16] VITALS: BP 111/64
[2020-12-08] MEDS ORDERED: SODIUM CHLORIDE 0.9% 500 ML IV ONE (23:52)
[2020-12-09] MEDS ORDERED: MORPHINE SULFATE 2 MG/ML SYRINGE IVP ONE (04:45)
[2020-12-09 04:57] VITALS: BP 116/75
[2020-12-09 07:37] VITALS: BP 118/73
[2020-12-09] MEDS ORDERED: SODIUM CHLORIDE 0.9% 500 ML IV ONE (08:40)
[2020-12-09] MEDS ORDERED: CefTRIAXone 1 GM/DEXTROSE 50 ML IV ONE (09:00)
== END 2020-12-09 12:30 | disposition left against medical advice (07) | DRG 693 ==
LOC: EMS 18:37 → 6N 12-09 01:38
PROVIDERS: ADMIT Hospitalist; ATTEND Hospitalist
DX: N20.0 Calculus of kidney (principal); E43 Unspecified severe protein-calorie malnutrition; N17.9 Acute kidney failure, unspecified; N13.30 Unspecified hydronephrosis; R45.851 Suicidal ideations; E87.1 Hypo-osmolality and hyponatremia; E87.6 Hypokalemia; F15.10 Other stimulant abuse, uncomplicated; F25.0 Schizoaffective disorder, bipolar type; F17.210 Nicotine dependence, cigarettes, uncomplicated; Z59.0 Homelessness; Z88.0 Allergy status to penicillin; Z88.1 Allergy status to other antibiotic agents; Z88.5 Allergy status to narcotic agent; Z79.899 Other long term (current) drug therapy; Z68.20 Body mass index [BMI] 20.0-20.9, adult; Z53.29 Procedure and treatment not carried out because of patient's decision for other reasons; R10.9 Unspecified abdominal pain
CPT/HCPCS: 74176; 80053; 81001; 81002; 83605; 84132; 84702; 85025; 87040; 87077; 87086; 87186; 87205; 99291; G0480; J0696; J2270; J3480; J3490; J7030; J7040; J7060

== ENCOUNTER 2021-11-06 10:51 | Emergency (ER) | payer MEDICARE, MEDICAID ==
[~2021-11-06] VITALS: Ht 174 cm; Wt 75.0 kg
[2021-11-06 10:57] VITALS: BP 117/69
[2021-11-06 11:34] LABS: APPEARANCE,URINE TURBID (CLEAR); BILIRUBIN,URINE NEGATIVE (NEGATIVE); GLUCOSE, URINE (UA) NEGATIVE (NEGATIVE); KETONES,URINE NEGATIVE (NEGATIVE); LEUKOCYTE ESTERASE ,URINE LARGE (NEGATIVE); NITRATE,URINE POSITIVE (NEGATIVE); OCCULT BLOOD,URINE SMALL (NEGATIVE); PROTEIN,URINE 100-200,SEE CONFIRM mg/dL (NEGATIVE); SPECIFIC GRAVITIY, URINE 1.019 (1.003-1.030); UROBILINOGEN,URINE <=1.0 mg/dL (<=1.0)
[2021-11-06 11:40] LABS: AMPHET/METH SCREEN,URINE POSITIVE (NEGATIVE); BARBITURATE SCREEN, URINE NEGATIVE (NEGATIVE); BENZODIAZEPINES SCREEN,URINE NEGATIVE (NEGATIVE); CANNABINOID SCREEN,URINE NEGATIVE (NEGATIVE); COCAINE SCREEN,URINE NEGATIVE (NEGATIVE); METHADONE SCREEN, URINE NEGATIVE (NEGATIVE); OPIATE SCREEN,URINE NEGATIVE (NEGATIVE)
[2021-11-06 11:41] LABS: PHENCYCLIDINE SCREEN,URINE NEGATIVE (NEGATIVE)
[2021-11-06 11:56] LABS: BACTERIA,URINE Many /HPF (None Seen); WBC,URINE 51-100 /HPF (0-5)
[2021-11-06 11:57] LABS: SQUAMOUS EPITHELIAL CELL,UR Few /LPF (None Seen)
[2021-11-06 12:03] LABS: SULFOSALICYLIC ACID,URINE 2+ (Negative)
== END 2021-11-06 12:17 ==
LOC: EMS 10:52
DX: F15.10 Other stimulant abuse, uncomplicated (principal); F31.9 Bipolar disorder, unspecified; F17.210 Nicotine dependence, cigarettes, uncomplicated; Z88.0 Allergy status to penicillin; Z88.6 Allergy status to analgesic agent; Z88.1 Allergy status to other antibiotic agents; Z79.899 Other long term (current) drug therapy
CPT/HCPCS: 81001; 81002; 84703; 87086; 99283

== ENCOUNTER 2022-02-26 21:18 | Emergency (ER) | payer MEDICAID ==
[~2022-02-26] VITALS: Ht 172.7 cm; Wt 74.0 kg
[2022-02-26 21:33] VITALS: BP 113/77
[2022-02-26 23:10] LABS: BASOPHILS % (AUTO) 0.6 % (0.0-2.0); EOSINOPHILS % (AUTO) 3.6 % (1.0-6.0); HEMATOCRIT 36.3 % (36-46); HEMOGLOBIN 11.9 g/dL (12.0-16.0); LYMPHOCYTES # (AUTO) 4.4 K/uL (1.0-4.8); LYMPHOCYTES % (AUTO) 40.1 % (22.0-44.0); MEAN CORPUSCULAR HEMOGLOBIN 29.1 pg (26.0-34.0); MEAN CORPUSCULAR HGB CONC 32.9 G/dL (31.0-37.0); MEAN CORPUSCULAR VOLUME 88 fL (80-100); MONOCYTES # (AUTO) 0.6 K/uL (0.1-1.0); MONOCYTES % (AUTO) 5.2 % (2.0-9.0); NEUTROPHILS # (AUTO) 5.5 K/uL (1.8-7.7); NEUTROPHILS % (AUTO) 50.5 % (40.0-70.0); PLATELET COUNT (AUTO) 318 K/uL (150-450); RED BLOOD CELL COUNT(AUTO) 4.11 MIL/uL (4.00-5.20); RED CELL DISTRIBUTION WIDTH 15.2 % (11.5-14.5)
[2022-02-26 23:23] LABS: ANION GAP 6 mmol/L (8-16); CALCIUM, TOTAL 8.3 mg/dL (8.8-10.5); CARBON DIOXIDE 26 mmol/L (22-29); CHLORIDE 106 mmol/L (98-107); CREATININE 0.69 mg/dL (0.60-1.30); GLOMERULAR FILTR. RATE CALC > 60 mL/min (>60); GLUCOSE,RANDOM 96 mg/dL (70-110); POTASSIUM 3.9 mmol/L (3.5-5.1); SODIUM SERUM 138 mmol/L (136-145); UREA NITROGEN, BLOOD 12 mg/dL (7-18)
[2022-02-26 23:29] LABS: ALANINE AMINOTRANSFERASE 12 U/L (12-78); ALKALINE PHOSPHATASE 51 U/L (46-116); ASPARTATE AMINOTRANSFERASE 11 U/L (15-37); BILIRUBIN,TOTAL 0.2 mg/dL (0.1-1.0); TOTAL PROTEIN, SERUM 5.7 g/dL (6.4-8.2)
[2022-02-26] MEDS ORDERED: HALOPERIDOL 5 MG TABLET PO ONE (23:30)
[2022-02-27] MEDS ORDERED: FLUO10CA24 PO (15:22)
== END 2022-02-27 03:54 | disposition home or self-care (01) ==
LOC: EMS 21:19
DX: F10.129 Alcohol abuse with intoxication, unspecified (principal); F31.9 Bipolar disorder, unspecified; F20.9 Schizophrenia, unspecified; F17.210 Nicotine dependence, cigarettes, uncomplicated; Z88.0 Allergy status to penicillin; Z88.6 Allergy status to analgesic agent; Z88.8 Allergy status to other drugs, medicaments and biological substances
CPT/HCPCS: 99285; 80053; 85025; 36415; G0480

== ENCOUNTER 2022-02-27 14:09 | Emergency (ER) | payer MEDICAID, MEDICARE ==
[~2022-02-27] VITALS: Ht 172.7 cm; Wt 72.7 kg
[2022-02-27 14:16] VITALS: BP 120/66
[2022-02-27 14:53] LABS: COVID AG,FIA SOURCE NASOPHARYNGEAL
[2022-02-27 14:56] LABS: BASOPHILS % (AUTO) 0.4 % (0.0-2.0); EOSINOPHILS % (AUTO) 0.4 % (1.0-6.0); HEMATOCRIT 38.2 % (36-46); HEMOGLOBIN 12.6 g/dL (12.0-16.0); LYMPHOCYTES # (AUTO) 2.3 K/uL (1.0-4.8); LYMPHOCYTES % (AUTO) 21.1 % (22.0-44.0); MEAN CORPUSCULAR HEMOGLOBIN 28.9 pg (26.0-34.0); MEAN CORPUSCULAR VOLUME 88 fL (80-100); MONOCYTES # (AUTO) 0.4 K/uL (0.1-1.0); MONOCYTES % (AUTO) 4.1 % (2.0-9.0); PLATELET COUNT (AUTO) 391 K/uL (150-450); RED BLOOD CELL COUNT(AUTO) 4.36 MIL/uL (4.00-5.20); RED CELL DISTRIBUTION WIDTH 14.9 % (11.5-14.5)
[2022-02-27 15:07] LABS: ANION GAP 4 mmol/L (8-16); CALCIUM, TOTAL 8.6 mg/dL (8.8-10.5); CARBON DIOXIDE 29 mmol/L (22-29); CHLORIDE 104 mmol/L (98-107); CREATININE 0.69 mg/dL (0.60-1.30); GLUCOSE,RANDOM 100 mg/dL (70-110); POTASSIUM 3.7 mmol/L (3.5-5.1); SODIUM SERUM 137 mmol/L (136-145); UREA NITROGEN, BLOOD 12 mg/dL (7-18)
[2022-02-27 15:11] LABS: GLOMERULAR FILTR. RATE CALC > 60 mL/min (>60)
[2022-02-27 15:16] LABS: B-TYPE NATRIURETIC PEPTIDE 19 pg/mL (0-100)
[2022-02-27] MEDS ORDERED: FLUO10CA24 PO (15:22)
[2022-02-27 15:33] LABS: ALANINE AMINOTRANSFERASE 12 U/L (12-78); ALBUMIN 3.3 g/dL (3.4-5.0); ALKALINE PHOSPHATASE 54 U/L (46-116); ASPARTATE AMINOTRANSFERASE 13 U/L (15-37); BILIRUBIN,TOTAL 0.7 mg/dL (0.1-1.0); CREATINE KINASE, TOTAL ONLY 84 U/L (26-192); HCG,QUANTITATIVE < 1 mIU/mL (0-6); TOTAL PROTEIN, SERUM 6.2 g/dL (6.4-8.2)
== END 2022-02-27 18:11 | disposition home or self-care (01) ==
LOC: EMS 14:30
DX: R53.1 Weakness (principal); F31.9 Bipolar disorder, unspecified; F20.9 Schizophrenia, unspecified; F17.210 Nicotine dependence, cigarettes, uncomplicated; Z88.0 Allergy status to penicillin; Z88.6 Allergy status to analgesic agent; Z79.899 Other long term (current) drug therapy; Z20.822 Contact with and (suspected) exposure to COVID-19
CPT/HCPCS: 99285; 70450; 71045; 87426; 80053; 82550; 83880; 84484; 84702; 85025; 36415; 72125; 93005; G0480

== ENCOUNTER 2022-12-16 19:48 | Inpatient (IN) | payer MEDICARE, MEDICAID ==
[~2022-12-16] VITALS: Ht 172.7 cm; Wt 84.0 kg
[2022-12-16 22:48] LABS: BASOPHILS % (AUTO) 0.7 % (0.0-2.0); EOSINOPHILS % (AUTO) 2.7 % (1.0-6.0); HEMATOCRIT 39.2 % (36-46); HEMOGLOBIN 12.6 g/dL (12.0-16.0); LYMPHOCYTES # (AUTO) 3.9 K/uL (1.0-4.8); LYMPHOCYTES % (AUTO) 39.4 % (22.0-44.0); MEAN CORPUSCULAR HEMOGLOBIN 29.5 pg (26.0-34.0); MEAN CORPUSCULAR VOLUME 92 fL (80-100); MONOCYTES # (AUTO) 0.6 K/uL (0.1-1.0); NEUTROPHILS # (AUTO) 5.1 K/uL (1.8-7.7); NEUTROPHILS % (AUTO) 51.2 % (40.0-70.0); PLATELET COUNT (AUTO) 452 K/uL (150-450); RED BLOOD CELL COUNT(AUTO) 4.26 MIL/uL (4.00-5.20); RED CELL DISTRIBUTION WIDTH 14.8 % (11.5-14.5); WHITE BLOOD COUNT (AUTO) 9.9 K/uL (4.5-11.0)
[2022-12-16 23:03] LABS: ALCOHOL, BLOOD (SERUM) 262 mg/dL (0-10)
[2022-12-16 23:09] LABS: ALANINE AMINOTRANSFERASE 10 U/L (12-78); ALBUMIN 3.1 g/dL (3.4-5.0); ALKALINE PHOSPHATASE 62 U/L (46-116); ANION GAP 14 mmol/L (8-16); ASPARTATE AMINOTRANSFERASE 16 U/L (15-37); BILIRUBIN,TOTAL 0.4 mg/dL (0.1-1.0); CALCIUM, TOTAL 8.2 mg/dL (8.8-10.5); CARBON DIOXIDE 23 mmol/L (22-29); CHLORIDE 109 mmol/L (98-107); CREATININE 0.75 mg/dL (0.60-1.30); GLOMERULAR FILTR. RATE CALC > 60 mL/min (>60); GLUCOSE,RANDOM 90 mg/dL (70-110); HCG,QUANTITATIVE < 1 mIU/mL (0-6); SODIUM SERUM 146 mmol/L (136-145); THYROID STIMULATING HORMONE 1.55 uIU/mL (0.36-3.74); TOTAL PROTEIN, SERUM 6.1 g/dL (6.4-8.2); UREA NITROGEN, BLOOD 10 mg/dL (7-18)
[2022-12-16 23:15] LABS: LITHIUM < 0.20 mmol/L (0.60-1.20)
[2022-12-16] MEDS ORDERED: POTASSIUM CHLORIDE 20 MEQ ER TABLET PO ONE (23:15)
[2022-12-17] VITALS (7 sets, daily range): BP systolic 103–146; BP diastolic 60–87; PULSE 65–76; RESP 18–19; TEMP 97.3–97.9; O2SAT 95–98
[2022-12-17] MEDS ORDERED: POTASSIUM CHLORIDE 20 MEQ ER TABLET PO ONE (07:15)
[2022-12-17 09:17] LABS: COVID AG,FIA SOURCE NASAL SWAB
[2022-12-17 09:41] LABS: SARS-COV2 (COVID) ANTIGEN,FIA Negative (Negative)
[2022-12-17] MEDS ORDERED: ZOLPIDEM TARTRATE 10 MG TABLET PO PRN (11:00)
[2022-12-17] MEDS ORDERED: QUEtiapine FUMARATE 100 MG TABLET PO PRN (11:00)
[2022-12-17] MEDS: LORazepam 2 MG TABLET PO PRN ×2 (16:06→20:23)
[2022-12-17] MEDS ORDERED: NICOTINE 14 MG/24 HOUR PATCH TD PRN (20:45)
[2022-12-17] MEDS ORDERED: MAGNESIUM HYDROXIDE SUSPENSION 30 ML UDCUP PO PRN (20:45)
[2022-12-17] MEDS ORDERED: ALBUTEROL SULFATE HFA 90 MCG/PUFF 8 GM INHALER IH PRN (20:45)
[2022-12-17] MEDS ORDERED: ACETAMINOPHEN 325 MG TABLET PO PRN (20:45)
[2022-12-17] MEDS ORDERED: ONDANSETRON HCL 4 MG TABLET PO PRN (20:45)
[2022-12-17] MEDS ORDERED: GuaiFENesin/D-METHORPHAN [SUGAR-FREE] 200-20MG/10 ML SYRUP UDCUP PO PRN (20:45)
[2022-12-17] MEDS ORDERED: CloNIDine HCL 0.1 MG TABLET PO PRN (20:45)
[2022-12-17] MEDS ORDERED: LOPERAMIDE HCL 2 MG CAPSULE PO PRN (20:45)
[2022-12-17] MEDS ORDERED: DOCUSATE SODIUM 100 MG CAPSULE PO PRN (20:45)
[2022-12-17] MEDS ORDERED: MAG HYDROX/AL HYDROX/SIMETH ES 30 ML SUSPENSION UDCUP PO PRN (20:45)
[2022-12-18] VITALS (10 sets, daily range): BP systolic 117–139; BP diastolic 67–77; PULSE 66–90; RESP 16–18; TEMP 97.6–98.1; O2SAT 97–98
[2022-12-18] MEDS: LORazepam 2 MG TABLET PO PRN (05:10)
[2022-12-18] MEDS: LEVOTHYROXINE SODIUM 50 MCG TABLET PO SCH (06:18)
[2022-12-18] MEDS ORDERED: LORazepam 2 MG TABLET PO PRN (07:00)
[2022-12-18] MEDS: PETROLATUM,WHITE 28 GM JELLY TP PRN (08:04)
[2022-12-18 08:18] LABS: HEMOGLOBIN A1C 5.2 % (3.8-5.6)
[2022-12-18 08:29] LABS: CHOL/HDL RATIO 3.2 (3.9-5.7)
[2022-12-18 08:30] LABS: THYROID STIMULATING HORMONE 3.58 uIU/mL (0.36-3.74)
[2022-12-18] MEDS: THIAMINE 100 MG TABLET PO SCH (08:48)
[2022-12-18] MEDS: MULTIVITAMINS, THERAPEUTIC TABLET PO SCH (08:48)
[2022-12-18] MEDS: LORazepam 2 MG TABLET PO SCH ×4 (08:48→20:32)
[2022-12-18] MEDS: FOLIC ACID 1 MG TABLET PO SCH (08:48)
[2022-12-18] MEDS ORDERED: FLUoxetine HCL 10 MG CAPSULE PO SCH (14:00)
[2022-12-18] MEDS: LamoTRIgine 25 MG TABLET PO SCH (14:27)
[2022-12-18] MEDS: FLUoxetine HCL 20 MG CAPSULE PO SCH (14:27)
[2022-12-19] VITALS (9 sets, daily range): BP systolic 106–120; BP diastolic 46–78; PULSE 73–86; RESP 17–18; TEMP 96.8–98; O2SAT 96–98
[2022-12-19] MEDS: LEVOTHYROXINE SODIUM 50 MCG TABLET PO SCH (06:19)
[2022-12-19] MEDS: LORazepam 2 MG TABLET PO SCH ×4 (08:33→21:00)
[2022-12-19] MEDS: FOLIC ACID 1 MG TABLET PO SCH (08:33)
[2022-12-19] MEDS: THIAMINE 100 MG TABLET PO SCH (08:33)
[2022-12-19] MEDS: MULTIVITAMINS, THERAPEUTIC TABLET PO SCH (08:33)
[2022-12-19] MEDS: FLUoxetine HCL 20 MG CAPSULE PO SCH (08:33)
[2022-12-19] MEDS: LamoTRIgine 25 MG TABLET PO SCH (08:33)
[2022-12-19] MEDS: PETROLATUM,WHITE 28 GM JELLY TP PRN (08:49)
[2022-12-19] MEDS: ACETAMINOPHEN 325 MG TABLET PO PRN (14:38)
[2022-12-20 00:31] VITALS: BP 122/84; PULSE 76; RESP 18; TEMP 97.8
[2022-12-20 05:06] VITALS: BP 122/84; PULSE 76; RESP 18; TEMP 97.8
[2022-12-20] MEDS: LORazepam 1 MG TABLET PO PRN (05:09)
[2022-12-20] MEDS: ACETAMINOPHEN 325 MG TABLET PO PRN (05:10)
[2022-12-20] MEDS: LEVOTHYROXINE SODIUM 50 MCG TABLET PO SCH (06:30)
[2022-12-20 08:05] VITALS: BP 118/79; PULSE 93; RESP 18; TEMP 97.8; O2SAT 97
[2022-12-20] MEDS: FLUoxetine HCL 20 MG CAPSULE PO SCH (08:54)
[2022-12-20] MEDS: LamoTRIgine 25 MG TABLET PO SCH (08:54)
[2022-12-20] MEDS: THIAMINE 100 MG TABLET PO SCH (08:54)
[2022-12-20] MEDS: MULTIVITAMINS, THERAPEUTIC TABLET PO SCH (08:54)
[2022-12-20] MEDS: LORazepam 1 MG TABLET PO SCH ×4 (08:54→20:06)
[2022-12-20] MEDS: FOLIC ACID 1 MG TABLET PO SCH (08:54)
[2022-12-20 20:01] VITALS: BP 118/67; PULSE 80; RESP 16; TEMP 97.3; O2SAT 96
[2022-12-21 02:40] VITALS: BP 118/76; PULSE 80; RESP 18; TEMP 97.6; O2SAT 97
[2022-12-21] MEDS: LORazepam 1 MG TABLET PO PRN (03:01)
[2022-12-21] MEDS: LEVOTHYROXINE SODIUM 50 MCG TABLET PO SCH (06:30)
[2022-12-21] MEDS ORDERED: LORazepam 1 MG TABLET PO PRN (07:00)
[2022-12-21 08:04] VITALS: BP 130/73; PULSE 86; RESP 18; TEMP 97.6; O2SAT 96
[2022-12-21] MEDS: FOLIC ACID 1 MG TABLET PO SCH (08:05)
[2022-12-21] MEDS: THIAMINE 100 MG TABLET PO SCH (08:05)
[2022-12-21] MEDS: MULTIVITAMINS, THERAPEUTIC TABLET PO SCH (08:05)
[2022-12-21] MEDS: LamoTRIgine 25 MG TABLET PO SCH (08:05)
[2022-12-21] MEDS: FLUoxetine HCL 20 MG CAPSULE PO SCH (08:05)
[2022-12-21] MEDS: ACETAMINOPHEN 325 MG TABLET PO PRN (08:06)
[2022-12-21 08:59] VITALS: BP 130/73; PULSE 86; RESP 18; TEMP 97.6; O2SAT 96
== END 2022-12-21 13:33 | disposition left against medical advice (07) | DRG 885 ==
LOC: EMS 19:49 → B2X 12-17 12:19
PROVIDERS: ADMIT Psychiatry & Neurology Psychiatry; ATTEND Psychiatry & Neurology Psychiatry
DX: F25.1 Schizoaffective disorder, depressive type (principal); R45.851 Suicidal ideations; E87.0 Hyperosmolality and hypernatremia; E87.6 Hypokalemia; E03.9 Hypothyroidism, unspecified; F19.10 Other psychoactive substance abuse, uncomplicated; F10.20 Alcohol dependence, uncomplicated; F41.9 Anxiety disorder, unspecified; G47.00 Insomnia, unspecified; Z53.21 Procedure and treatment not carried out due to patient leaving prior to being seen by health care provider; K59.09 Other constipation; Z20.822 Contact with and (suspected) exposure to COVID-19; F31.9 Bipolar disorder, unspecified; Z88.0 Allergy status to penicillin; Z88.8 Allergy status to other drugs, medicaments and biological substances; Z88.6 Allergy status to analgesic agent; Z79.899 Other long term (current) drug therapy; Z59.00 Homelessness unspecified; Z87.891 Personal history of nicotine dependence
CPT/HCPCS: 80053; 80061; 80178; 83036; 84132; 84443; 84702; 85025; 99285; G0480

== ENCOUNTER 2022-12-19 15:48 | Emergency (ER) | payer MEDICAID, MEDICARE ==
[~2022-12-19] VITALS: Ht 172.7 cm; Wt 81.8 kg
[2022-12-19 16:01] VITALS: TEMP 98.4
[2022-12-19] MEDS ORDERED: ACETAMINOPHEN 325 MG TABLET PO ONE (16:15)
[2022-12-19] MEDS ORDERED: LORazepam 1 MG TABLET PO ONE (19:00)
[2022-12-19 20:29] VITALS: BP 121/72; PULSE 71; RESP 16
== END 2022-12-19 22:42 | disposition home or self-care (01) ==
LOC: EMS 15:49
DX: S09.90XA Unspecified injury of head, initial encounter (principal); F10.20 Alcohol dependence, uncomplicated; F31.9 Bipolar disorder, unspecified; F20.9 Schizophrenia, unspecified; F17.210 Nicotine dependence, cigarettes, uncomplicated; Z98.890 Other specified postprocedural states; Z88.0 Allergy status to penicillin; Z88.6 Allergy status to analgesic agent; Z88.5 Allergy status to narcotic agent; Z88.8 Allergy status to other drugs, medicaments and biological substances; W01.0XXA Fall on same level from slipping, tripping and stumbling without subsequent striking against object, initial encounter; Y93.89 Activity, other specified; Y92.89 Other specified places as the place of occurrence of the external cause; Y99.8 Other external cause status
CPT/HCPCS: 70450; 72125; 84703; 99284

== ENCOUNTER 2023-01-28 02:36 | Inpatient (IN) | payer MEDICARE, MEDICAID ==
[2023-01-28] VITALS (8 sets, daily range): BP systolic 105–130; BP diastolic 60–98; PULSE 75–103; RESP 17–18; TEMP 97.5–98.3; O2SAT 95–98
[~2023-01-28] VITALS: Ht 167.6 cm; Wt 72.6 kg
[2023-01-28 03:25] LABS: BASOPHILS % (AUTO) 0.7 % (0.0-2.0); EOSINOPHILS % (AUTO) 2.3 % (1.0-6.0); HEMATOCRIT 41.1 % (36-46); HEMOGLOBIN 13.6 g/dL (12.0-16.0); LYMPHOCYTES % (AUTO) 27.6 % (22.0-44.0); MEAN CORPUSCULAR HEMOGLOBIN 30.1 pg (26.0-34.0); MEAN CORPUSCULAR VOLUME 91 fL (80-100); MONOCYTES # (AUTO) 0.6 K/uL (0.1-1.0); MONOCYTES % (AUTO) 5.2 % (2.0-9.0); NEUTROPHILS # (AUTO) 6.9 K/uL (1.8-7.7); NEUTROPHILS % (AUTO) 64.2 % (40.0-70.0); PLATELET COUNT (AUTO) 410 K/uL (150-450); RED BLOOD CELL COUNT(AUTO) 4.51 MIL/uL (4.00-5.20); RED CELL DISTRIBUTION WIDTH 14.9 % (11.5-14.5); WHITE BLOOD COUNT (AUTO) 10.8 K/uL (4.5-11.0)
[2023-01-28 03:33] LABS: ANION GAP 11 mmol/L (8-16); CALCIUM, TOTAL 8.7 mg/dL (8.8-10.5); CARBON DIOXIDE 25 mmol/L (22-29); CHLORIDE 106 mmol/L (98-107); CREATININE 0.82 mg/dL (0.60-1.30); GLOMERULAR FILTR. RATE CALC > 60 mL/min (>60); GLUCOSE,RANDOM 103 mg/dL (70-110); POTASSIUM 3.3 mmol/L (3.5-5.1); SODIUM SERUM 142 mmol/L (136-145); UREA NITROGEN, BLOOD 10 mg/dL (7-18)
[2023-01-28 03:38] LABS: ALANINE AMINOTRANSFERASE 19 U/L (12-78); ALBUMIN 3.3 g/dL (3.4-5.0); ALKALINE PHOSPHATASE 72 U/L (46-116); ASPARTATE AMINOTRANSFERASE 14 U/L (15-37); BILIRUBIN,TOTAL 0.5 mg/dL (0.1-1.0); TOTAL PROTEIN, SERUM 6.8 g/dL (6.4-8.2)
[2023-01-28 03:40] LABS: ALCOHOL, BLOOD (SERUM) 220 mg/dL (0-10)
[2023-01-28] MEDS ORDERED: QUEtiapine FUMARATE 100 MG TABLET PO PRN (05:30)
[2023-01-28] MEDS ORDERED: LORazepam 2 MG TABLET PO PRN (05:30)
[2023-01-28] MEDS ORDERED: ZOLPIDEM TARTRATE 10 MG TABLET PO PRN (05:30)
[2023-01-28 07:14] LABS: COVID AG,FIA SOURCE NASAL SWAB
[2023-01-28 07:49] LABS: SARS-COV2 (COVID) ANTIGEN,FIA Negative (Negative)
[2023-01-28] MEDS ORDERED: MAGNESIUM HYDROXIDE SUSPENSION 30 ML UDCUP PO PRN (10:45)
[2023-01-28] MEDS ORDERED: CYANOCOBALAMIN 1,000 MCG/ML VIAL IM ONE (10:45)
[2023-01-28] MEDS ORDERED: GuaiFENesin/D-METHORPHAN [SUGAR-FREE] 200-20MG/10 ML SYRUP UDCUP PO PRN (10:45)
[2023-01-28] MEDS ORDERED: TUBERCULIN, PURIFIED PROTEIN DERIVATIVE 5 TU/0.1 ML SYRINGE ID ONE (10:45)
[2023-01-28] MEDS ORDERED: PROMETHAZINE HCL 25 MG TABLET PO PRN (10:45)
[2023-01-28] MEDS ORDERED: LOPERAMIDE HCL 2 MG CAPSULE PO PRN (10:45)
[2023-01-28] MEDS ORDERED: ACETAMINOPHEN 325 MG TABLET PO PRN (10:45)
[2023-01-28] MEDS ORDERED: OLANZapine 5 MG RAPDIS TABLET PO PRN (10:45)
[2023-01-28] MEDS ORDERED: PALIPERIDONE PALMITATE 234 MG/1.5 ML SYRINGE IM ONE (10:45)
[2023-01-28] MEDS ORDERED: MAG HYDROX/ALUMINUM HYD/SIMETH ES 30 ML SUSPENSION UDCUP PO PRN (10:45)
[2023-01-28] MEDS ORDERED: HydrOXYzine PAMOATE 50 MG CAPSULE PO PRN (10:45)
[2023-01-28] MEDS: LORazepam 2 MG TABLET PO PRN ×2 (11:40→18:07)
[2023-01-28] MEDS: THIAMINE 100 MG TABLET PO SCH (16:39)
[2023-01-28] MEDS: MELATONIN 5 MG TABLET PO SCH (20:35)
[2023-01-28] MEDS: DIVALPROEX SODIUM 500 MG ER TABLET PO SCH (20:36)
[2023-01-28] MEDS ORDERED: OLANZapine 5 MG RAPDIS TABLET PO SCH (21:00)
[2023-01-29] MEDS ORDERED: LORazepam 2 MG TABLET PO PRN (07:00)
[2023-01-29 07:15] VITALS: BP 115/67; PULSE 85; RESP 18; TEMP 97.9; O2SAT 95
[2023-01-29 08:09] VITALS: BP 100/65; PULSE 70; RESP 16; TEMP 98; O2SAT 97
[2023-01-29 08:37] LABS: HEMOGLOBIN A1C 5.2 % (3.8-5.6)
[2023-01-29] MEDS: NALTREXONE HCL 50 MG TABLET PO SCH ×2 (08:48→09:00)
[2023-01-29] MEDS: OMEGA-3/DHA/EPA/FISH OIL 1,000 MG CAPSULE PO SCH ×2 (08:48→09:00)
[2023-01-29] MEDS: MULTIVITAMINS WITH MINERALS, THERAPEUTIC TABLET PO SCH ×2 (08:48→09:00)
[2023-01-29] MEDS: THIAMINE 100 MG TABLET PO SCH ×3 (08:48→16:47)
[2023-01-29] MEDS: LORazepam 2 MG TABLET PO SCH ×4 (08:48→21:31)
[2023-01-29] MEDS: FOLIC ACID 1 MG TABLET PO SCH ×2 (08:49→09:00)
[2023-01-29 08:54] LABS: CHOL/HDL RATIO 2.7 (3.9-5.7); FREE T4 (FREE THYROXINE) 1.11 ng/dL (0.76-1.46); THYROID STIMULATING HORMONE 2.93 uIU/mL (0.36-3.74)
[2023-01-29 10:30] VITALS: BP 125/86; PULSE 87; RESP 18; TEMP 97.8; O2SAT 97
[2023-01-29 10:50] VITALS: BP 125/86; PULSE 87; RESP 18; TEMP 97.8; O2SAT 97
[2023-01-29] MEDS ORDERED: POTASSIUM CHLORIDE 20 MEQ ER TABLET PO ONE (12:00)
[2023-01-29 20:00] VITALS: BP 140/85; PULSE 76; RESP 18; TEMP 98.1; O2SAT 98
[2023-01-29] MEDS: MELATONIN 5 MG TABLET PO SCH (21:32)
[2023-01-29] MEDS: DIVALPROEX SODIUM 500 MG ER TABLET PO SCH (21:32)
[2023-01-29] MEDS: OLANZapine 10 MG RAPDIS TABLET PO SCH (21:33)
[2023-01-30] MEDS: LEVOTHYROXINE SODIUM 25 MCG TABLET PO SCH (06:32)
[2023-01-30 08:20] VITALS: BP 138/85; PULSE 90; RESP 18; TEMP 96.7; O2SAT 97
[2023-01-30] MEDS: THIAMINE 100 MG TABLET PO SCH ×2 (09:00→16:31)
[2023-01-30] MEDS: NALTREXONE HCL 50 MG TABLET PO SCH (09:00)
[2023-01-30] MEDS: MULTIVITAMINS WITH MINERALS, THERAPEUTIC TABLET PO SCH (09:00)
[2023-01-30] MEDS: FOLIC ACID 1 MG TABLET PO SCH (09:00)
[2023-01-30] MEDS: LORazepam 2 MG TABLET PO SCH ×4 (09:13→20:46)
[2023-01-30] MEDS: OMEGA-3/DHA/EPA/FISH OIL 1,000 MG CAPSULE PO SCH (15:09)
[2023-01-30] MEDS ORDERED: OLAN10TA26 PO (15:49)
[2023-01-30] MEDS ORDERED: MELA5TAB40 PO (15:49)
[2023-01-30] MEDS ORDERED: OMEG-135 PO (15:49)
[2023-01-30] MEDS ORDERED: DIVA500T69 PO (15:49)
[2023-01-30] MEDS ORDERED: NALT50TA PO (15:52)
[2023-01-30 18:04] VITALS: BP 119/74; PULSE 76; RESP 17; TEMP 97.6
[2023-01-30 20:45] VITALS: BP 128/81; PULSE 100; RESP 18; TEMP 97.7; O2SAT 95
[2023-01-30] MEDS: MELATONIN 5 MG TABLET PO SCH (20:46)
[2023-01-30] MEDS: DIVALPROEX SODIUM 500 MG ER TABLET PO SCH (20:46)
[2023-01-30] MEDS: OLANZapine 10 MG RAPDIS TABLET PO SCH (20:47)
[2023-01-30] MEDS ORDERED: NALTREXONE HCL 50 MG TABLET PO SCH (21:00)
[2023-01-31] MEDS: LEVOTHYROXINE SODIUM 25 MCG TABLET PO SCH (06:25)
[2023-01-31] MEDS ORDERED: LORazepam 1 MG TABLET PO PRN (07:00)
[2023-01-31 08:40] VITALS: BP 106/67; PULSE 88; RESP 17; TEMP 97.7; O2SAT 97
[2023-01-31] MEDS: FOLIC ACID 1 MG TABLET PO SCH (08:48)
[2023-01-31] MEDS: THIAMINE 100 MG TABLET PO SCH (08:48)
[2023-01-31] MEDS: OMEGA-3/DHA/EPA/FISH OIL 1,000 MG CAPSULE PO SCH (08:48)
[2023-01-31] MEDS: MULTIVITAMINS WITH MINERALS, THERAPEUTIC TABLET PO SCH (08:48)
[2023-01-31] MEDS ORDERED: LORazepam 1 MG TABLET PO SCH (09:00)
[2023-01-31] MEDS ORDERED: LEVO25TA9 PO (10:28)
[2023-01-31] MEDS ORDERED: LOPERAMIDE HCL 2 MG CAPSULE PO PRN (10:45)
[2023-02-01] MEDS ORDERED: LORazepam 1 MG TABLET PO PRN (07:00)
[2023-02-01] MEDS ORDERED: PALIPERIDONE PALMITATE 156 MG/ML SYRINGE IM ONE (09:00)
== END 2023-01-31 12:00 | disposition home or self-care (01) | DRG 885 ==
LOC: EMS 02:36 → B2X 09:04
PROVIDERS: ADMIT Psychiatry & Neurology Psychiatry; ATTEND Psychiatry & Neurology Psychiatry
DX: F25.9 Schizoaffective disorder, unspecified (principal); N13.2 Hydronephrosis with renal and ureteral calculous obstruction; Z59.00 Homelessness unspecified; F15.20 Other stimulant dependence, uncomplicated; F17.200 Nicotine dependence, unspecified, uncomplicated; E87.6 Hypokalemia; F10.20 Alcohol dependence, uncomplicated; F31.9 Bipolar disorder, unspecified; K76.9 Liver disease, unspecified; M19.90 Unspecified osteoarthritis, unspecified site; E03.9 Hypothyroidism, unspecified; J44.9 Chronic obstructive pulmonary disease, unspecified; F12.20 Cannabis dependence, uncomplicated; F41.9 Anxiety disorder, unspecified; Z20.822 Contact with and (suspected) exposure to COVID-19; T43.596A Underdosing of other antipsychotics and neuroleptics, initial encounter; Y92.89 Other specified places as the place of occurrence of the external cause; Z65.3 Problems related to other legal circumstances; Z87.440 Personal history of urinary (tract) infections; Z87.442 Personal history of urinary calculi; Z88.0 Allergy status to penicillin; Z63.9 Problem related to primary support group, unspecified; Z59.9 Problem related to housing and economic circumstances, unspecified; Z55.9 Problems related to education and literacy, unspecified; Z88.1 Allergy status to other antibiotic agents; Z88.6 Allergy status to analgesic agent; Z78.1 Physical restraint status
CPT/HCPCS: 80053; 80061; 83036; 84132; 84439; 84443; 85025; 86592; 99285; G0480; J3420; Q9967